=== PATIENT | male | born 1980 ===

== ENCOUNTER 2019-02-01 14:59 | Emergency (ER) | payer SELFPAY ==
[~2019-02-01] VITALS: Ht 172.7 cm; Wt 89.4 kg
[~2019-02-01 14:59] MED LIST: Prednisone50 MG PO
[2019-02-01] MEDS ORDERED: Veetids 500500 MG PO (17:08)
[2019-02-01] MEDS ORDERED: Prednisone20 MG PO (17:08)
== END 2019-02-01 17:15 | disposition home or self-care (01) ==
LOC: ER 14:59
DX: J02.9 Acute pharyngitis, unspecified (principal); Z87.891 Personal history of nicotine dependence
CPT/HCPCS: 36415; 86308; 87081; 87430; 99283

== ENCOUNTER 2019-04-08 22:16 | Emergency (ER) | payer MEDICAID ==
[~2019-04-08] VITALS: Ht 175.3 cm; Wt 68.0 kg
[~2019-04-08 22:16] MED LIST changes: +Prednisone20 MG PO; +Veetids 500500 MG PO
[2019-04-09] MEDS ORDERED: EPIPEN 2-P0.3 MG/0.3 IM (00:39)
== END 2019-04-09 01:00 | disposition home or self-care (01) ==
LOC: ER 22:16
DX: R60.0 Localized edema (principal); T78.1XXA Other adverse food reactions, not elsewhere classified, initial encounter; Z87.891 Personal history of nicotine dependence
CPT/HCPCS: 96374; 96375; 99283-25; J1200; J2930